=== PATIENT | male | born 1965 | race Caucasian/White ===

== ENCOUNTER 2025-08-27 06:36 | Outpatient (OUT) | payer OTHER, SELFPAY ==
--- OUTSIDE RECORDS SUMMARY | 2025-08-20 03:35 | XMS_ITS ---
Author Organization The [facility] in [place] Address [address] [place] [address] Care Team Providers Care Carport Erector Name Role Phone Angel Beltre Primary Care Provider REASON FOR VISIT Recheck Labs Encounters Encounter Location Date Provider Diagnosis [address] [address] 08/20/2025 Angel Beltre Hypertension I10 and Elevated glucose level R73.09 Assessments Encounter Date Diagnosis (ICD Code) Assessment Notes Treatment Notes Treatment Clinical Notes Section Notes 08/20/2025 Hypertension (ICD-10 - I10) 08/20/2025Elevated glucose level (ICD-10 - R73.09) Plan Of Treatment Pending Test Test Name Order Date CMP - Comprehensive Metabolic Panel 10/2024 GLYCOHEMOGLOBIN A1C 08/20/2025 Progress Notes * FRANKIE, AnirudhDOB:1965 (59 yo M)Acc No.[id number]:08/20/2025 Patient:?Anirudh DAVID :1965???Age:59 Y???Sex:MalePhone:[phone] Address:[address] [place] [address] Subjective: * Chief Complaints: * R echeck Labs * Medical History: * Surgical History: * Hospitalization/Major Diagno stic Procedure: * Medications: Objective: * Vitals: * Physical Examination: ??? Assessment: * Assessment: 1.?Hypertension - I10???2.?Elevated glucose level - R73.09?? Plan: * Treatment: ?LAB: CMP - Comprehensive Metabolic Panel2.?Elevated glucose level?LAB: GLYCOHEMOGLOBIN A1C * Procedure Codes: * true * Date:?Generated for Printing/Faxing/eTransmitting on:?08/27/2025 06:40 AM EST
--- OUTSIDE RECORDS SUMMARY | 2025-08-27 06:40 | XMS_ITS | Clinical Summary ---
Author Organization [facility] Address [id number] [address] [place] [address] Care Team Providers Care Teaching Assistant Name Role Phone Atif Beltre MD Primary Care Provider [phone] Allergies No known active allergies Medications MedicationSigDispense QuantityRefillsLast FilledStart DateEnd DateStatus cholecalciferol (VITAMIN D3) 50,000 units capsule Take by mouth Indications: only if sick x 3 daysActive b complex vitamins tablet Take 1 tablet by mouth in the morning.Active UNABLE TO FIND Med Name: bausch and lomb advanced reliefActive magnesium oxide 400 mg capsule Take by mouth.Active UNABLE TO FIND Med Name: stool softnerActive sildenafiL (VIAGRA) 50 mg tablet Take 1 tablet (50 mg total) by mouth as needed for erectile dysfunction. 6 tablet ctive triamcinolone (KENALOG) 0.025 % cream Indications:Atopic dermatitis, unspecified typeAPPLY 1 APPLICATION TOPICALLY IN THE MORNING AND 1 APPLICATION BEFORE BEDTIME. 80 g ctive albuterol (PROVENTIL HFA;VENTOLIN HFA) 90 mcg/actuation inhaler TAKE 1-2 PUFFS EVERY 4-6 HOURS NEEDED FOR COUGH, SHORTNESS OF BREATH, OR WHEEZING. USE VVOTUVX6706/18/2023ctive lisinopriL (PRINIVIL,ZESTRIL) 20 mg tablet Indications:Primary hypertensionTake 1 tablet (20 mg total) by mouth in the morning. 30 tablet 5Active Active Problems ProblemNoted DateDiagnosed DateNose septum lucvovsrx38/11/2018Erectile gkusxfpuvef47/06/2016 Overview (08/24/2016): Improved with Viagra 50 milligrams in the past Assessment & Plan (08/24/2016 4:11 PM EST): Plan for trial of Cialis 20 milligrams. If this works we can switch him to generic sildenafil whichwill be cheaper for him. I additionally ordered a testosterone level today for him Bilateral hearing loss08/04/2016Bilateral impacted /16/2016Hypertension Encounters DateTypeDepartmentCare HrkcWiobzkhlnlb88/09/2025Travelfrom Last 3 Months Immunizations ImmunizationAdministration DatesNext DueHepatitis A004/08/2011,09/29/2010 Family History Medical HistoryRelationNameCommentsArthritisFatherHyperlipidemiaFather HypertensionFatherHeart attackMotherOtherMotherpancreatic surgery (tumor) RelationNameStatusCommentsFatherAliveMotherDeceased Social History Tobacco UseTypesPacks/DayYears UsedDateSmoking Tobacco: FormerSmokeless Tobacco: Never Tobacco Cessation:Counseling Given: Not Answered Alcohol UseStandard Drinks/WeekCommentsNot Currently0 (1 standard drink = 0.6 oz pure alcohol)PHQ-2AnswerDate RecordedTotal Dphpf410/20/2023ChildcareAnswerDate QttpjmdtOzkstiqqmYttlmbw31/12/2019EmploymentAnswerDate RecordedEmploymentUnknown 02/28/2019Hunger ScreeningAnswerDate RecordedWithin the past 12 months we worried whether our food would run out before we got money to buy more.Never True07/08/2023Within the past 12 months the food we bought just didn't last and we didn't have money to get more.Never True3Purpose - LifeAnswerDate RecordedPurpose and direction in shgqXryiiib75/11/2021ex and Gender Information ValueDate RecordedSex Assigned at BirthNot on fileLegal LckZsuk1604/24/2015 11:39 AM EDTGender IdentityNot on fileSexual OrientationNot on file Last Filed Vital Signs Vital SignReadingTime TakenCommentsBlood Todqrcub217/8510 9:31 AM EDT Pnupk827407/08/2023 9:31 AM ZGOUjqqdebjltm70.1 ??C (98.8 ??F)2021 6:28 PM ESTRespiratory Ovse685409/23/2021 6:28 PM ESTOxygen Ihilosltwa08%2021 8:28 PM ESTInhaled Oxygen Concentration--Avwtmm118.6 kg (221 lb 12.8 oz)07/08/2023 9:31 AM QEZAdmwga085.4 cm (5' 6.3 )07/08/2023 9:31 AM EDTBody Mass Index35.48 07/08/2023 9:31 AM EDT Plan of Treatment Health MaintenanceDue DateLast DoneCommentsTobacco Djsnygemb95/05/1976DTaP,Tdap and Td Vaccines (1 - Tdap)09/23/19827680Zxglnfbkkos69/05/2009Zoster (Shingles) Vaccine (1 of 2)2013dult BMI Seuwgifzf78epression Jjlahvsxt70Influenza Zaglvyy4305/20/2025RSV ( or age 60+ yrs) (1 - 1-dose 75+ series)2038 Medical Devices Not on file Procedures Procedure NamePriorityDate/TimeAssociated DiagnosisCommentsOCCULT BLOOD X 1, FDEDXRraehdv84/09/2025 6:00 AM EDT Encounter for general adult medical examination without abnormal findings from Last 3 Months Results * Occult blood x 1, stool (05/28/2025 6:00 AM EDT)ComponentValueRef RangeTest MethodAnalysis TimePerformed AtPathologist SignatureFECAL OCCULT BLOODNegative Qwbekajl57/09/2025 11:[address] [facility] LABORATORYSpecimen (Source)Anatomical Location / LateralityCollection Method / VolumeCollection TimeReceived TimeStoolFeces / Ptvysbk7905/28/2025 6:00 AM EDT05/28/2025 4:37 PM EDT Narrative Authorizing ProviderResult TypeResult StatusDonavi Beltre MDBODY FLUIDS AND STOOLS ORDERABLESFinal ResultPerforming OrganizationAddressCity/State/ZIP Code Phone Number [facility] [address] [place] [address], [place] [phone] from Last 3 Months Insurance Care Teams Team MemberRelationshipSpecialtyStart DateEnd Atif Beltre MD [address] [place] [address] PCP - GeneralFamily Medicine05/15/25
--- OUTSIDE RECORDS SUMMARY | 2025-08-27 06:40 | XMS_ITS | Clinical Summary ---
Author Organization [facility] Address [address] [place] [address] Care Team Providers Care Crop Farm Workers Name Role Phone Colin Nagel MD Primary Care Provider [phone] Allergies No known active allergies Medications MedicationSigDispense QuantityRefillsLast FilledStart DateEnd DateStatus lisinopril 20 MG tablet 1 tablet Once a day , Kecqrr154Active Family History RelationNameStatusCommentsFatherAliveMotherDeceased Social History Tobacco UseTypesPacks/DayYears UsedDateSmoking Tobacco: Never Tobacco Cessation:Counseling Given: Not Answered Alcohol UseStandard Drinks/WeekCommentsNever0 (1 standard drink = 0.6 oz pure alcohol)Sex and Gender InformationValueDate RecordedSex Assigned at BirthNot on fileLegal ZlaRala1712/01/2022 7:14 PM EDTGender IdentityNot on fileSexual OrientationNot on file Last Filed Vital Signs Vital SignReadingTime TakenCommentsBlood Wyvvtgyv257/8705 12:00 PM EDT Pulse--Temperature--Respiratory Rate--Oxygen Saturation--Inhaled Oxygen Concentration--Gjcoft666 kg (222 lb)09/10/2024 9:32 AM YXQWerxna770.7 cm (5' 8 ) 09/10/2024 9:32 AM ESTBody Mass Index33.7509/10/2024 9:32 AM EST Plan of Treatment Not on file Insurance Care Teams Team MemberRelationshipSpecialtyStart DateEnd Date Colin Nagel MD [address] [place] [address], [address] [place] [address] PCP - GeneralFamily Medicine03/19/25
--- OUTSIDE RECORDS SUMMARY | 2025-08-27 06:40 | XMS_ITS | Clinical Summary ---
Author Organization [facility] Address [address], [address] [place] [address] Care Team Providers Care Manager [employer] Retail Name Role Phone Shankar Palacios MD Primary Care Provider + Allergies No known active allergies Medications MedicationSigDispense QuantityRefillsLast FilledStart DateEnd DateStatus b complex vitamins capsule Take 1 capsule by mouth dailyActive Multiple Vitamins-Minerals (THERAPEUTIC MULTIVITAMIN-MINERALS) tablet Take 1 tablet by mouth dailyActive beta carotene 51436 UNITS capsule Take 25,000 Units by mouth dailyActive NONFORMULARY 380 mg 2 times daily enchinaceaActive lisinopril (PRINIVIL;ZESTRIL) 20 MG tablet Take 20 mg by mouth dailyActive Magnesium 400 MG CAPS Take by mouth dailyActive docusate sodium (COLACE) 100 MG capsule Take 100 mg by mouth 2 times dailyActive naproxen (NAPROSYN) 500 MG tablet Take 1 tablet by mouth 2 times daily (with meals) 60 tablet 08/31/2016Active Active Problems ProblemNoted DateDiagnosed DateHTN (hypertension)02/19/2015 Resolved Problems ProblemNoted DateDiagnosed DateResolved DateColon cancer fqrbmojbn63/19/2016 06/15/2018 Family History Medical HistoryRelationNameCommentsHigh Blood PressureFatherHigh Cholesterol FatherOtherFathergoutCancerMotherRelationNameStatusCommentsBrother 1AliveBrother 2AliveFatherAliveMotherAlive Social History Tobacco UseTypesPacks/DayYears UsedDateSmoking Tobacco: NeverSmokeless Tobacco: NeverAlcohol UseStandard Drinks/WeekCommentsNo0 (1 standard drink = 0.6 oz pure alcohol)Sex and Gender InformationValueDate RecordedSex Assigned at BirthNot on fileLegal KejErly5210/29/2012 11:21 AM ESTGender IdentityNot on fileSexual OrientationNot on file Last Filed Vital Signs Vital SignReadingTime TakenCommentsBlood Ipnnltme456/80111/01/2015 5:38 PM EST Jwukx33671/13/2016 5:38 PM ESTTemperature--Respiratory Hslh438411/01/2015 5:38 PM ESTOxygen Xqqpoisxhy05%04/14/2015 4:09 PM EDTInhaled Oxygen Concentration-- Xxgwuo54.6 kg (202 lb)08/31/2016 5:38 PM KWUJprqnf231.9 cm (5' 6.5 )08/31/2016 5:38 PM ESTBody Mass Index32.12111/01/2015 5:38 PM EST Plan of Treatment Not on file Insurance Care Teams Team MemberRelationshipSpecialtyStart DateEnd Shankar Palacios MD [address] [place] [address] [facility]01/24/19
--- OUTSIDE RECORDS SUMMARY | 2025-08-27 06:40 | XMS_ITS | Patient Health Record ---
Author Organization The [facility] in [place] Address [address] [place] [address] Care Team Providers Care Tanker Serviceman Name Role Phone Angel Beltre Primary Care Provider Allergies No Known Allergies Results Component Value Reference Range Notes CBC AND AUTO DIFF * Reviewed date:05/16/2025 12:43:50 PM Interpretation: Performing Lab: Notes/Report: WBC 7.6 4-11 x10E9/L RBC COUNT5.034.1-5.7 X10E12/VRNQMHGLFSN00.613-17 g/aIIKFNJEJANX40.639-50 %MCV87 80-100 fLMCH29.027-34 saHQIW70.532-36 g/dLRDW13.711.5-15 %PLATELET PAZCR108660- 450 X10E9/LMPV9.27-12 fLNEUTROPHILS RELATIVE PERCENT BY AUTOMATED COUNT54.6 LYMPHOCYTES RELATIVE PERCENT BY AUTOMATED COUNT35.2MONOCYTES RELATIVE PERCENT BY AUTOMATED COUNT8.7EOSINOPHILS RELATIVE PERCENT BY AUTOMATED COUNT0.8BASOPHILS RELATIVE PERCENT BY AUTOMATED COUNT0.7NEUTROPHILS ABSOLUTE COUNT BY AUTOMATED COUNT4.21.5-6.6 10*3/uLLYMPHOCYTES ABSOLUTE COUNT (10*3/UL) BY AUTOMATED COUNT 2.71.0-3.5 10*3/uLMONOCYTES ABSOLUTE COUNT (10*3/UL) BY AUTOMATED COUNT0.70.0- 0.9 10*3/uLEOSINOPHILS ABSOLUTE COUNT (10*3/UL) BY AUTOMATED COUNT0.10.0-0.4 10*3/uLBASOPHILS ABSOLUTE COUNT (10*3/UL) BY AUTOMATED COUNT0.10.0-0.2 10*3/uL CELLAVISION DIFFERENTIAL TYPEAUTOMATED DIFFERENTIAL PERFORMED AT [address] [place] [address] COMPREHENSIVE METABOLIC PANEL Reviewed date:05/16/2025 12:43:50 PM Interpretation: Performing Lab: Notes/Report:UETJAF355852-015 mmol/LPOTASSIUM4.13.5-5.0 mmol/LJVPBMPCN39316-645 mmol/LCARBON VEYOWTS9996-82 mmol/LANION WSE65-66 mmol/LBLOOD UREA UAXDRUYI999-56 mg/dLCREATININE0.890.60-1.30 mg/dLMETHOD TRACEABLE TO IDMS FAAHEFLZVKXVSYV2524- 99 mg/gHFOXHPVD37.58.5-10.5 mg/dLTOTAL PROTEIN7.06.0-8.0 g/dLALBUMIN4.63.2-5.3 g/dLALKALINE EIKUEYBWNRD5722-929 U/LAST38<=41 U/LALT92<=40 U/LBILIRUBIN,TOTAL0.9 0.3-1.2 mg/dLEGFR (CKD-EPI) NON-RACE DEPENDENT>90>=60 ml/min/1.73sq.m CKD-EPI 2020 equation that does not use a race coefficient. PERFORMED AT [address] [place] [address] Reported eGFR is based on the EGFR not calculated due to patient's gender not being defined. FREE T3 Reviewed date:05/16/2025 12:43:50 PM Interpretation: Performing Lab: Notes/Report:FREE T33.832.50-3.90 pg/mL PERFORMED AT [address] [place] [address] URIC ACID Reviewed date:05/16/2025 12:43:50 PM Interpretation: Performing Lab: Notes/Report:URIC ACID6.42.6-7.2 mg/dL PERFORMED AT [address] [place] [address] INSULIN Reviewed date:05/16/2025 12:43:50 PM Interpretation: Performing Lab: Notes/Report:ASDTTNL06.121.00-23.00 uIU/mL Ref. range is for FASTING NON-DIABETIC POPULATION. PERFORMED AT [address] [address] HGB A1C (GLYCO-HGB) Reviewed date:05/16/2025 12:43:50 PM Interpretation: Performing Lab: Notes/Report:HEMOGLOBIN A1C6.54.4-5.6 % Diabetes : > 6.4 % affected. Prediabetes : 5.7 % to 6.4 % Use with caution in patients with abnormal hemoglobin variants as Result HgbA1c Normal : less than 5.7 % ADA Guidelines the half-life of red blood cells and in vivo glycation rates are EST. AVERAGE MZLCSZR772MENIDQSMV AT [address] [address]SYMVPGG PROFILE Reviewed date:05/16/2025 12:43:50 PM Interpretation: Performing Lab: Notes/Report:FREE T40.710.61-1.60 ng/dLTSH1.420.49-4.67 uIU/mL PERFORMED AT [address] [address] LIPID PANEL Reviewed date:05/16/2025 12:43:50 PM Interpretation: Performing Lab: Notes/Report:OVMYAJMOWAE608353-417 mg/xMBMLGNZIBKJBG95970-029 mg/dLHDL ODILTOFNOCU44>39 mg/dL HDL > or = 40mg/dL- Desirable HDL >60 mg/dL - Negative Risk HDL <40 mg/dL - High Risk LDL (CALC)120<130 mg/dL LDL >160 mg/dL - High Risk LDL <100 mg/dL - Desirable CHOLESTEROL:HDL4.61.0-5.0 NAVERY LOW YNGWHRUFVAC629-53 mg/dLPERFORMED AT [address] [address]HFI. SCREENING Reviewed date:05/16/2025 12:43:51 PM Interpretation: Performing Lab: Notes/Report:PROSTATIC SPEC ANT1.810.00-4.00 ng/mL cannot be used interchangeably. PERFORMED AT [address] [place] [address] Khris DXI chemiluminescent immunoassay. Values obtained by different assay methods The method used for this test is Toney FECAL OCCULT BLOOD Reviewed date:05/29/2025 12:35:32 PM Interpretation: Performing Lab: Notes/Report:FECAL OCCULT BLOODNegativeNegativePERFORMED AT [facility] [address],[place] [address] Reason For Referral Reason Basal cell? Diagnosis 1 Nevus (D22.9) Referral Organization [facility] Referring Provider First Name Angel Referring Provider Last Name Patt Referring Provider Speciality Family Med ashley Referred Provider Jaswinder Morelos Referred Provider Specialty General Surg juvencio Referral Priority Routine Medications Medication SIG (Take, Route, Frequency, Duration) Notes Start Date End Date Status Lisinopril 20 MG 1 tablet Orally Once a day; Dur ation: 90 days Active Social History Tobacco Use: Social History Observation Description Date Details (start date - stop date) Never Smoker NA - NA Tobacco Control (Standard) Question Answer Notes Tobacco use: Nonsmoker AUDIT-C (Standard) Question Answer Notes Did you have a drink containing alcohol in the p ast year? No Dnsjpv3RpjydnswpsgwfcBtmtijqf Problems Problem Type SNOMED Code ICD Code Onset Dates Problem Status W/U Status Risk Notes Problem Hypertension (21638263) Hypertension (I10 ) ActiveconfirmedProblemWell adult (817971906)Well adult (Z00.00)Activeconfirmed ProblemNevus (1497754644)Nevus (D22.9)Activeconfirmed Vital Signs Blood pressure diastolic 90 mm Hg 04/15/2025 Lkawom29 in04/15/2025lood pressure pqmuyjdy536 mm Hg04/15/20251448Odaekq773.8 lbs 04/15/2025BMI35.85 kg/m204/15/2025 Encounters Encounter Location Date Provider Diagnosis [facility] [address] [place] [address] 04/15/2025 Angel Beltre Well adult Z00.00 ; Hypertension I10 and Nevus D22.9 [facility] [address] [place] [address] 05/16/2025 Angel Beltre Elevated glucose lev el R73.09 [facility] [address] [facility] [place] [address] 05/29/2025 Angel Beltre [facility] [facility] [place] [address] 08/20/2025Doug HoyHypertension I10 and Elevated glucose level R73.09 Assessments Encounter Date Diagnosis (ICD Code) Assessment Notes Treatment Notes Treatment Clinical Notes Section Notes 04/15/2025 Hypertension (ICD-10 - I10) 04/15/2025Well adult (ICD-10 - Z00.00)05/16/2025Elevated glucose level (ICD-10 - R73.09)08/20/2025Hypertension (ICD-10 - I10)08/20/2025Elevated glucose level (ICD-10 - R73.09)04/15/2025Nevus (ICD-10 - D22.9) Plan Of Treatment Pending Test Test Name Order Date HEMOGLOBIN A1C (GLYCO) 04/15/2025 INSULIN, TOTAL 04/15/2025 LIPID PANEL (CHOL/TRIG/HDL/LDL) 04/15/20 25 URIC ACID 04/15/2025 CMP - Comprehensive Metabolic Panel 10/2024 STOOL OCCULT BLOOD 04/15/2025 GLYCOHEMOGLOBIN A1C 05/16/2025 GLYCOHEMOGLOBIN A1C 08/20/2025 THYROID PANEL (T4/TSH/FREE T3) PSA, SCREENING 04/15/2025 CMP (COMP MET MEZA) w/eGFR CKD-EPI 2024 CBC WITH DIFF 04/15/2025 Insurance Providers Payer Name Payer Address Payer Phone Subscriber Number Group Number Insured Name Patient Relationship to Insured Coverage Start Date Coverage End Date [facility] JO[facility] [address] [place] [phone] [id number] Roly David - patient is the insured Medical (General) History Medical History History ICD Code hypertension Surgical History Surgery Date(Month/Year) gallbladder removed 1985 lasik eye surgery 2009
[2025-08-27 07:18] LABS: Alanine Aminotransferase 114 U/L (16-63); Albumin Globulin Ratio 1.1; Albumin Level 3.9 g/dL (3.4-5.0); Alkaline Phosphatase 80 U/L (46-116); Anion Gap 15.0; Aspartate Amino Transferase 49 U/L (15-37); Blood Urea Nitrogen 12.0 mg/dL (7.0-18.0); Calcium 9.0 mg/dL (8.5-10.1); Carbon Dioxide 26.0 mmol/L (21.0-32.0); Chloride 104 mmol/L (98-107); Estimated GFR (African America >60 (>=60 mL/min/1.73m^2); Estimated GFR (Non-African Ame >60 (>=60 mL/min/1.73m^2); Globulin 3.6 g/dL; Glucose 100 mg/dL (74-106); Potassium 4.0 mmol/L (3.5-5.1); Sodium 141 mmol/L (136-145); Total Protein 7.5 g/dL (6.4-8.2)
== END 2025-08-27 06:37 | disposition home or self-care (01) ==
LOC: LAB 06:37
PROVIDERS: PCP Family Medicine; Visit Provider Family Medicine
DX: R73.09 Other abnormal glucose (principal); I10 Essential (primary) hypertension
CPT/HCPCS: 36415; 80053; 83036

== ENCOUNTER 2025-09-10 15:30 | Outpatient (OUT) | payer OTHER, SELFPAY ==
--- OUTSIDE RECORDS SUMMARY | 2025-08-27 11:18 | XMS_ITS ---
Author Organization The [facility] in [place] Address [address] [place] [address] Care Team Providers Care Cuprous Chloride Operator Name Role Phone Angel Beltre Primary Care Provider REASON FOR VISIT Lab Results Encounters Encounter Location Date Provider Diagnosis [facility] [address] [place] [address] 08/27/2025 Angel Beltre Elevated liver function tests R79.89 Assessments Encounter Date Diagnosis (ICD Code) Assessment Notes Treatment Notes Treatment Clinical Notes Section Notes 08/27/2025 Elevated liver function tests (I CD-10 - R79.89) Plan Of Treatment Pending Test Test Name Order Date PROF 14(COMP METB) 08/27/2025 Progress Notes * Anirudh DAVIDDOB:1965 (59 yo M)Acc No.[id number]:08/27/2025 Patient:?Anirudh DAVID :1965???Age:59 Y???Sex:MalePhone:[phone] Address:[address] [place] [address] Subjective: * Chief Complaints: * L ab Results * Medical History: * Surgical History: * Hospitalization/Major Diagno stic Procedure: * Medications: Objective: * Vitals: * Physical Examination: ??? Assessment: * Assessment: 1.?Elevated liver function tests - R79.89 (Primary)??? Plan: * Treatment: ?LAB: PROF 14(COMP METB)* 2-3 week repeat * Procedure Codes: * true * Date:?Generated for Printing/Faxing/eTransmitting on:?09/10/2025 03:33 PM EST
--- OUTSIDE RECORDS SUMMARY | 2025-09-10 15:33 | XMS_ITS | Clinical Summary ---
Author Organization [facility] Address [address], [address] [place] [address] Care Team Providers Care Corrosion Engineer Name Role Phone Shankar Palacios MD Primary Care Provider + Allergies No known active allergies Medications MedicationSigDispense QuantityRefillsLast FilledStart DateEnd DateStatus b complex vitamins capsule Take 1 capsule by mouth dailyActive Multiple Vitamins-Minerals (THERAPEUTIC MULTIVITAMIN-MINERALS) tablet Take 1 tablet by mouth dailyActive beta carotene 06997 UNITS capsule Take 25,000 Units by mouth [...] Resolved Problems ProblemNoted DateDiagnosed DateResolved DateColon cancer /19/2016 06/15/2018 Family History Medical HistoryRelationNameCommentsHigh Blood PressureFatherHigh Cholesterol FatherOtherFathergoutCancerMotherRelationNameStatusCommentsBrother 1AliveBrother 2AliveFatherAliveMotherAlive Social History Tobacco UseTypesPacks/DayYears UsedDateSmoking Tobacco: NeverSmokeless Tobacco: NeverAlcohol UseStandard Drinks/WeekCommentsNo0 (1 standard drink = 0.6 oz pure alcohol)Sex and Gender InformationValueDate RecordedSex Assigned at BirthNot on fileLegal XbwGjov9810/29/2012 11:21 AM ESTGender IdentityNot on fileSexual OrientationNot on file Last Filed Vital Signs Vital SignReadingTime TakenCommentsBlood Iewxjqdf634/80111/01/2015 5:38 PM EST Gqunm43128/13/2016 5:38 PM ESTTemperature--Respiratory Xtel665311/01/2015 5:38 PM ESTOxygen Hwdqlzvmft28%04/14/2015 4:09 PM EDTInhaled Oxygen Concentration-- Zxrgca00.6 kg (202 lb)08/31/2016 5:38 PM PCWRquvsc052.9 cm (5' 6.5 )08/31/2016 5:38 PM ESTBody Mass Index32.12111/01/2015 5:38 PM EST Plan of Treatment Not on file Insurance Care Teams Team MemberRelationshipSpecialtyStart DateEnd Shankar Palacios MD [address] [place] [address] [facility]01/24/19
--- OUTSIDE RECORDS SUMMARY | 2025-09-10 15:33 | XMS_ITS | Patient Health Record ---
Author Organization [facility] [place] Address [address] [place] [address] Care Team Providers Care Belt Builder Helper Name Role Phone Angel Beltre Primary Care Provider Allergies No Known Allergies Results Component Value Reference Range Notes GLYCOHEMOGLOBIN A1C Reviewed date:08/27/2025 04:20:01 PM Interpretation: Performing Lab: Notes/Report: [facility] , Glycohemoglobin A1C 5.9 4.5-6.2 % ADA THERAPEUTIC TARGET < 7.0 > 7.0 ACTION SUGGESTED ADA RECOMMENDED LIMIT 4.0 - 6.0 Estimated Average Glucose 123 Performing Lab:see noteML - [facility] LBCBC AND AUTO DIFF * Reviewed date:05/16/2025 12:43:50 PM Interpretation: Performing Lab: Notes/Report:WBC7.64-11 x10E9/LRBC COUNT5.034.1-5.7 X10E12/BNSSRLJQAYE56.613-17 g/sPROEPQGDZUI48.639-50 %KOL5170-107 fLMCH29.027-34 bwAENH98.532-36 g/dLRDW13.7 11.5-15 %PLATELET AQNZH745560-040 X10E9/LMPV9.27-12 fLNEUTROPHILS RELATIVE PERCENT BY AUTOMATED COUNT54.6LYMPHOCYTES RELATIVE PERCENT BY AUTOMATED COUNT 35.2MONOCYTES RELATIVE PERCENT BY AUTOMATED COUNT8.7EOSINOPHILS RELATIVE PERCENT BY AUTOMATED COUNT0.8BASOPHILS RELATIVE PERCENT BY AUTOMATED COUNT0.7NEUTROPHILS ABSOLUTE COUNT BY AUTOMATED COUNT4.21.5-6.6 10*3/uLLYMPHOCYTES ABSOLUTE COUNT (10*3/UL) BY AUTOMATED COUNT2.71.0-3.5 10*3/uLMONOCYTES ABSOLUTE COUNT (10*3/UL) BY AUTOMATED COUNT0.70.0-0.9 10*3/uLEOSINOPHILS ABSOLUTE COUNT (10*3/UL) BY AUTOMATED COUNT0.10.0-0.4 10*3/uLBASOPHILS ABSOLUTE COUNT (10*3/UL) BY AUTOMATED COUNT0.10.0-0.2 10*3/uLCELLAVISION DIFFERENTIAL TYPEAUTOMATED DIFFERENTIAL PERFORMED AT [address], [place] [address] COMPREHENSIVE METABOLIC PANEL Reviewed date:05/16/2025 12:43:50 PM Interpretation: Performing Lab: Notes/Report:OFQUTD746588-139 mmol/LPOTASSIUM4.13.5-5.0 mmol/GXXHZMEXN85173-862 mmol/LCARBON BSCSRQJ0839-38 mmol/LANION DMO44-30 mmol/LBLOOD UREA WIFGODTC370-89 mg/dLCREATININE0.890.60-1.30 mg/dLMETHOD TRACEABLE TO IDMS YNTDCCVYXMZTKBW1874- 99 mg/xEFAOJKSX54.58.5-10.5 mg/dLTOTAL PROTEIN7.06.0-8.0 g/dLALBUMIN4.63.2-5.3 g/dLALKALINE YJBFXOJXPEY2199-598 U/LAST38<=41 U/LALT92<=40 U/LBILIRUBIN,TOTAL0.9 0.3-1.2 mg/dLEGFR (CKD-EPI) NON-RACE DEPENDENT>90>=60 ml/min/1.73sq.m CKD-EPI 2020 equation that does not use a race coefficient. PERFORMED AT [address] [id number] Reported eGFR is based on the EGFR not calculated due to patient's gender not being defined. FREE T3 Reviewed date:05/16/2025 12:43:50 PM Interpretation: Performing Lab: Notes/Report:FREE T33.832.50-3.90 pg/mL PERFORMED AT [address] [address] URIC ACID Reviewed date:05/16/2025 12:43:50 PM Interpretation: Performing Lab: Notes/Report:URIC ACID6.42.6-7.2 mg/dL PERFORMED AT [address] [address] INSULIN Reviewed date:05/16/2025 12:43:50 PM Interpretation: Performing Lab: Notes/Report:HDTTRNL46.121.00-23.00 uIU/mL Ref. range is for FASTING NON-DIABETIC POPULATION. PERFORMED AT [address] [address] HGB A1C (GLYCO-HGB) Reviewed date:05/16/2025 12:43:50 PM Interpretation: Performing Lab: Notes/Report:HEMOGLOBIN A1C6.54.4-5.6 % Diabetes : > 6.4 % affected. Prediabetes : 5.7 % to 6.4 % Use with caution in patients with abnormal hemoglobin variants as Result HgbA1c ADA Guidelines the half-life of red blood cells and in vivo glycation rates are Normal : less than 5.7 % EST. AVERAGE KJOJZFF139YKJDNXAZA AT [address] [address]SPYGOGN PROFILE Reviewed date:05/16/2025 12:43:50 PM Interpretation: Performing Lab: Notes/Report:FREE T40.710.61-1.60 ng/dLTSH1.420.49-4.67 uIU/mL PERFORMED AT [address] [address] LIPID PANEL Reviewed date:05/16/2025 12:43:50 PM Interpretation: Performing Lab: Notes/Report:TNOHUGMFGHF721922-760 mg/xZNIKGRFNPVQKD20252-624 mg/dLHDL YWGXJUYCKXO92>39 mg/dL HDL > or = 40mg/dL- Desirable HDL <40 mg/dL - High Risk HDL >60 mg/dL - Negative Risk LDL (CALC)120<130 mg/dL LDL >160 mg/dL - High Risk LDL <100 mg/dL - Desirable CHOLESTEROL:HDL4.61.0-5.0 NAVERY LOW QMUGDDAJMOA911-58 mg/dLPERFORMED AT [address] [place] [address]. SCREENING Reviewed date:05/16/2025 12:43:51 PM Interpretation: Performing Lab: Notes/Report:PROSTATIC SPEC ANT1.810.00-4.00 ng/mL cannot be used interchangeably. PERFORMED AT [address] [address] Khris DXI chemiluminescent immunoassay. The method used for this test is Toney Values obtained by different assay methods FECAL OCCULT BLOOD Reviewed date:05/29/2025 12:35:32 PM Interpretation: Performing Lab: Notes/Report:FECAL OCCULT BLOODNegativeNegativePERFORMED AT [address] [address]UYPH 14(COMP METB) Reviewed date:08/27/2025 04:20:01 PM Interpretation: Performing Lab: Notes/Report: [facility] ,Mbxfwc051807-676 mmol/LPotassium4.03.5-5.1 mmol/OYotiycvj08548-190 mmol/LCarbon Icjwbam71.021.0-32.0 mmol/LAnion Gap15.0Zvfeute57905-746 mg/dLBlood Urea Qpyixrdd68.07.0-18.0 mg/dLCreatinine0.950.70-1.30 mg/dLEstimated GFR ( Jazzy>60>=60 mL/min/1.73m 2Estimated GFR (Non- Brittany>60>=60 mL/min/1.73m 2BUN Creatinine Ratio12.9Dfjizzg7.08.5-10.1 mg/dLBilirubin Total0.50.2-1.0 mg/dL Aspartate Amino Uhjpzznavet6552-36 U/LAlanine Sizfnoyasthbopuy90284-70 U/L Alkaline Cgavxypisnq8624-756 U/LTotal Protein7.56.4-8.2 g/dLAlbumin Level3.93.4- 5.0 g/dLGlobulin3.6Albumin Globulin Ratio1.1Performing Lab:see noteML - [facility] LB Reason For Referral Reason Basal cell? Diagnosis 1 Nevus (D22.9) Referral Organization [facility] Referring Provider First Name Angel Referring Provider Last Name Peteliam Referring Provider Speciality Family Med ashley Referred [...] alcohol in the p ast year? No Mrmruk4IujbcyhzwajnbxZonngrus Problems Problem Type SNOMED Code ICD Code Onset Dates Problem Status W/U Status Risk Notes Problem Hypertension (02739382) Hypertension (I10 ) ActiveconfirmedProblemWell adult (097477205)Well adult (Z00.00)Activeconfirmed ProblemNevus (0701501372)Nevus (D22.9)Activeconfirmed Vital Signs Blood pressure diastolic 90 mm Hg 04/15/2025 Clnnox24 in04/15/2025lood pressure zxlyrkcq447 mm Hg04/15/20251639Enujaz655.8 lbs 04/15/2025BMI35.85 kg/m204/15/2025 Encounters Encounter Location Date Provider Diagnosis [facility] [address] [place] [address] 04/15/2025 Angel Hoy Well adult Z00.00 ; Hypertension I10 and Nevus D22.9 [facility] [address] [place] [address] 05/16/2025 Angel Hoy Elevated glucose lev el R73.09 [facility] [address] [place] [address] 05/29/2025 Angel Hoy [facility] [place] [address] 08/20/2025Doug HoyHypertension I10 and Elevated glucose level R73.09[facility] [place] [address]/09/2025 Angel HoyElevated liver function tests R79.89 Assessments Encounter Date Diagnosis (ICD Code) Assessment Notes Treatment Notes Treatment Clinical Notes Section Notes 04/15/2025 Hypertension (ICD-10 - I10) 04/15/2025Well adult (ICD-10 - Z00.00)05/16/2025Elevated glucose level (ICD-10 - R73.09)08/20/2025Hypertension (ICD-10 - I10)08/27/2025Elevated liver function tests (ICD-10 - R79.89)08/20/2025Elevated glucose level (ICD-10 - R73.09) 04/15/2025Nevus (ICD-10 - D22.9) Plan Of Treatment Pending Test Test Name Order Date HEMOGLOBIN A1C (GLYCO) 04/15/2025 INSULIN, TOTAL 04/15/2025 LIPID PANEL (CHOL/TRIG/HDL/LDL) 04/15/20 25 URIC ACID 04/15/2025 CMP - Comprehensive Metabolic Panel 10/2024 STOOL OCCULT BLOOD 04/15/2025 GLYCOHEMOGLOBIN A1C 05/16/2025 PROF 14(COMP METB) 08/27/2025 THYROID PANEL (T4/TSH/FREE T3) PSA, SCREENING 04/15/2025 CMP (COMP MET MEZA) w/eGFR CKD-EPI 2024 CBC WITH DIFF 04/15/2025 Insurance Providers Payer Name Payer Address Payer Phone Subscriber Number Group Number Insured Name Patient Relationship to Insured Coverage Start Date Coverage End Date [facility] [address] [place] [phone] [id number] Roly David - patient is the insured Medical (General) History Medical History History ICD Code hypertension Surgical History Surgery Date(Month/Year) lasik eye surgery 2009 gallbladder removed 1985
--- OUTSIDE RECORDS SUMMARY | 2025-09-10 15:33 | XMS_ITS | Clinical Summary ---
Author Organization [employer] tem Address [id number] [address] [place] [address] Care Team Providers Care Rn Sexual Assault Name Role Phone Atif Beltre MD Primary Care Provider [phone] Allergies No known active allergies Medications MedicationSigDispense [...] COUGH, SHORTNESS OF BREATH, OR WHEEZING. USE XDOXVPF6406/18/2023ctive lisinopriL (PRINIVIL,ZESTRIL) 20 mg tablet Indications:Primary hypertensionTake 1 tablet (20 mg total) by mouth in the morning. 30 tablet 5Active Active Problems ProblemNoted DateDiagnosed DateNose septum hqfzyuggl19/11/2018Erectile csryiyzeqjp05/06/2016 Overview (08/24/2016): Improved with Viagra 50 milligrams in the past Assessment & Plan (08/24/2016 4:11 PM EST): Plan for trial of Cialis 20 milligrams. If this works we can switch him to generic sildenafil whichwill be cheaper for him. I additionally ordered a testosterone level today for him Bilateral hearing loss08/04/2016Bilateral impacted dogazas48/16/2016Hypertension Immunizations ImmunizationAdministration DatesNext DueHepatitis A004/08/2011,09/29/2010 Family History Medical HistoryRelationNameCommentsArthritisFatherHyperlipidemiaFather HypertensionFatherHeart attackMotherOtherMotherpancreatic surgery (tumor) RelationNameStatusCommentsFatherAliveMotherDeceased Social History Tobacco UseTypesPacks/DayYears UsedDateSmoking Tobacco: FormerSmokeless Tobacco: Never Tobacco Cessation:Counseling Given: Not Answered Alcohol UseStandard Drinks/WeekCommentsNot Currently0 (1 standard drink = 0.6 oz pure alcohol)PHQ-2AnswerDate RecordedTotal Ryflh368/20/2023ChildcareAnswerDate HchfawzvXyphddelpVhzoaqm45/12/2019EmploymentAnswerDate RecordedEmploymentUnknown 02/28/2019Hunger ScreeningAnswerDate RecordedWithin the past 12 months we worried whether our food would run out before we got money to buy more.Never True07/08/2023Within the past 12 months the food we bought just didn't last and we didn't have money to get more.Never True07/08/2023urpose - LifeAnswerDate RecordedPurpose and direction in dhecDvdhhcy35/11/2021ex and Gender Information ValueDate RecordedSex Assigned at BirthNot on fileLegal MicBsfo6604/24/2015 11:39 AM EDTGender IdentityNot on fileSexual OrientationNot on file Last Filed Vital Signs Vital SignReadingTime TakenCommentsBlood Uhptywsb333/8507/08/2023 9:31 AM EDT Dbszl448407/08/2023 9:31 AM WOEKzlxjhgxqrz11.1 ??C (98.8 ??F)2021 6:28 PM ESTRespiratory Uhjv345509/23/2021 6:28 PM ESTOxygen Xbcfynqzjd49%2021 8:28 PM ESTInhaled Oxygen Concentration--Kseewh676.6 kg (221 lb 12.8 oz)07/08/2023 9:31 AM ZYGFzjhts935.4 cm (5' 6.3 )07/08/2023 9:31 AM EDTBody Mass Index35.48 07/08/2023 9:31 AM EDT Plan of Treatment Health MaintenanceDue DateLast DoneCommentsTobacco Tshuzgafd98/05/1976DTaP,Tdap and Td Vaccines (1 - Tdap)09/23/19826272Vvebrlriewj93/05/2009Zoster (Shingles) Vaccine (1 of 2)2013dult BMI Bavxddqhj28epression Nglghebgg97Influenza Qlszjui0805/20/2025RSV ( or age 60+ yrs) (1 - 1-dose 75+ series)2038 Medical Devices Not on file Insurance Care Teams Team MemberRelationshipSpecialtyStart DateEnd Atif Beltre MD [address] [facility], [place] [address] PCP - GeneralFamily Medicine05/15/25
--- OUTSIDE RECORDS SUMMARY | 2025-09-10 15:33 | XMS_ITS | Clinical Summary ---
Author Organization [facility] Address [address] [facility] [place] [address] Care Team Providers Care Installation Tech Name Role Phone Colin Nagel MD Primary Care Provider [phone] Allergies No known active allergies Medications MedicationSigDispense QuantityRefillsLast FilledStart DateEnd DateStatus lisinopril 20 MG tablet 1 tablet Once a day , Neyicy604Active Family History RelationNameStatusCommentsFatherAliveMotherDeceased Social History Tobacco UseTypesPacks/DayYears UsedDateSmoking Tobacco: Never Tobacco Cessation:Counseling Given: Not Answered Alcohol UseStandard Drinks/WeekCommentsNever0 (1 standard drink = 0.6 oz pure alcohol)Sex and Gender InformationValueDate RecordedSex Assigned at BirthNot on fileLegal QkyCpul1412/01/2022 7:14 PM EDTGender IdentityNot on fileSexual OrientationNot on file Last Filed Vital Signs Vital SignReadingTime TakenCommentsBlood Oygstfhs611/8705 12:00 PM EDT Pulse--Temperature--Respiratory Rate--Oxygen Saturation--Inhaled Oxygen Concentration--Plhhov329 kg (222 lb)09/10/2024 9:32 AM UUMOjnruc583.7 cm (5' 8 ) 09/10/2024 9:32 AM ESTBody Mass Index33.7509/10/2024 9:32 AM EST Plan of Treatment Not on file Insurance Care Teams Team MemberRelationshipSpecialtyStart DateEnd Date Colin Nagel MD [address] [place] [address], [address] [place] [address] PCP - GeneralFamily Medicine03/19/25
[2025-09-10 16:14] LABS: Alanine Aminotransferase 100 U/L (16-63); Albumin Globulin Ratio 1.1; Albumin Level 3.8 g/dL (3.4-5.0); Alkaline Phosphatase 83 U/L (46-116); Anion Gap 12.0; Aspartate Amino Transferase 39 U/L (15-37); Blood Urea Nitrogen 18.0 mg/dL (7.0-18.0); Calcium 8.7 mg/dL (8.5-10.1); Carbon Dioxide 27.9 mmol/L (21.0-32.0); Chloride 105 mmol/L (98-107); Estimated GFR (African America >60 (>=60 mL/min/1.73m^2); Estimated GFR (Non-African Ame >60 (>=60 mL/min/1.73m^2); Globulin 3.4 g/dL; Glucose 126 mg/dL (74-106); Potassium 3.9 mmol/L (3.5-5.1); Sodium 141 mmol/L (136-145); Total Protein 7.2 g/dL (6.4-8.2)
== END 2025-09-10 15:31 | disposition home or self-care (01) ==
LOC: LAB 15:30
PROVIDERS: PCP Family Medicine; Visit Provider Family Medicine
DX: R79.89 Other specified abnormal findings of blood chemistry (principal)
CPT/HCPCS: 36415; 80053

== ENCOUNTER 2025-09-14 09:56 | Outpatient (OUT) | payer OTHER, SELFPAY ==
--- OUTSIDE RECORDS SUMMARY | 2025-09-10 12:33 | XMS_ITS ---
Author Organization [facility] in [place] Address [address] [place] [address] Care Team Providers Care Sales Professional Name Role Phone Angel Beltre Primary Care Provider REASON FOR VISIT review labs- Encounters Encounter Location Date Provider Diagnosis [facility] [address] [place] [address] 09/10/2025 Angel Beltre Elevated liver function tests R79.89 Assessments Encounter Date Diagnosis (ICD Code) Assessment Notes Treatment Notes Treatment Clinical Notes Section Notes 09/10/2025 Elevated liver function tests (I CD-10 - R79.89) Plan Of Treatment Pending Test Test Name Order Date US abdomen complete 09/10/2025 Progress Notes * Anirudh DAVIDDOB:1965 (59 yo M)Acc No.[id number]:09/10/2025 Patient:?Anirudh DAVID :1965???Age:59 Y???Sex:MalePhone:[phone] Address:[address] [place] [address] Subjective: * Chief Complaints: * R eview labs- * Medical History: * Surgical History: * Hospitalization/Major Diagno stic Procedure: * Medications: Objective: * Vitals: * Physical Examination: ??? Assessment: * Assessment: 1.?Elevated liver function tests - R79.89 (Primary)??? Plan: * Treatment: ?Imaging: US abdomen complete * Procedure Codes: * true * Date:?Generated for Printing/Faxing/eTransmitting on:?09/14/2025 09:59 AM EST
--- OUTSIDE RECORDS SUMMARY | 2025-09-10 23:59 | XMS_ITS | Continuity of Care Document ---
Author Organization [facility] [place] Address [address] [place] [address] Care Team Providers Care Senior Network Architect Name Role Phone Atif Beltre Primary Care Physician Encounter FT_AMBFIN [id number] Date(s): 09/10/25 - 09/10/25 [facility] [address] [facility], [address] [place], [place] [address] Encounter Diagnosis Seborrheic keratoses(Discharge Diagnosis) - 09/10/25 Discharge Disposition: Home (Routine DC) Attending Physician: Jaswinder PARRA MD Referring Physician: Atif Beltre MD Encounter Type: Clinic Allergies, Adverse Reactions, Alerts No Known Allergies Functional Status 09/10/25 Symptomatic After Exposure to ContagionNoSymptomatic After Travel High-Risk Area NoDroplet, Contact Isolation VerificationN/AAirborne,Contact Isolation VerificationN/A Medications lisinopril 20 mg Tab 20 mg = 1 tab(s), Oral, Daily, Refills(s) 0 Start Date: 08/26/25 Status: Ordered Medication Dispense Status: Completed Total Allowed Fills: 1 Fills Dispensed: 0 Multi Vitamins oral tablet 1 tab(s), Oral, Daily, Refill(s) 0 Start Date: 09/10/25 Status: Ordered Medication Dispense Status: Completed Total Allowed Fills: 1 Fills Dispensed: 0 Problem List ConditionConfirmationCourseEffective DatesStatusHealth StatusInformantBilateral hearing ffrmStjxonipk59/16/16ActiveBMI 36.0-36.9,adultConfirmedActiveErectile vbsskovmdveMzqpfdwmq60/6/16ActiveEssential hypertensionConfirmed01/30/19 - 08/26/25ResolvedHypertensionConfirmedActiveObesity due to excess calories ConfirmedActiveSeborrheic keratosesConfirmedActive Procedures ProcedureDateRelated DiagnosisBody SiteStatusLaser assisted in situ keratomileusis (procedure)09/19/09CompletedCholecystectomy (procedure)09/19/85 Completed Vital Signs Most recent to oldest [Reference Range]:1Peripheral Pulse Rate [60-100 bpm]72 bpm (09/10/25 3:07 PM)Respiratory Rate [14-20 br/min]16 br/min (09/10/25 3:07 PM)Blood Pressure [89-139/59-89 mmHg]166/104mmHg *HI* (09/10/25 3:07 PM)Blood Pressure LocationRight arm (09/10/25 3:07 PM) Social History Social History TypeResponseSmoking StatusNever (less than 100 in lifetime);Never entered on: 09/10/25Birth SexMaleSex RepresentationMale (finding) Patient Care team information Care Team Personnel Name: Atif Beltre MD Position: FT Physician Member Role: Primary Care Physician Address: [address] [place] [address] Telecom: Care Team Related Persons Name: REJI DAVID Insurance Providers Guarantor name: Health Plan Information #: 1 Payer: [employer] Payer Identifier: [id number] Member Number: [id number] Group Number: [id number] Subscriber Identifier: [id number] Relationship to Subscriber: self Coverage Type: PRIVATE HEALTH INSURANCE Coverage Verification Date: NA Telecom: [phone] Address: [facility] [address] [place] [address]
--- NOTE | 2025-09-14 09:57 | US_ITS ---
The [address] [address] Patient Name: ROSAMARIA DAVID MRN: [id number] date: 1965 Sex: M Assigned Patient Location: US Current Patient Location: US Accession/Order Number: [id number] Exam Date: 09/14/2025 10:00 Report Date: 09/14/2025 18:23 At the request of: SHAHEEN RUIZ MD Procedure: US abdomen complete COMPLETE ABDOMINAL ULTRASOUND HISTORY: Elevated liver enzymes FINDINGS: LIVER: Hepatic steatosis hepatic cyst measuring up to 2.7 cm adequate flow portal vein GALLBLADDER: Cholecystectomy BILE DUCTS: No ductal dilatation PANCREAS: Unremarkable RIGHT KIDNEY: Length 9.0 cm LEFT KIDNEY: Length 10.5 cm No hydronephrosis identified. No renal calculus seen. No renal mass or cyst identified. No perirenal abnormality seen. No splenic mass or enlargement seen. The upper portions of the IVC and abdominal aorta unremarkable. No free intraperitoneal fluid seen. US/US abdomen complete IMPRESSION: Hepatic steatosis. Anechoic hepatic cysts. No biliary duct dilatation. Cholecystectomy. Impression dictated by: Christopher Ferguson M.D. 09/14/2025 6:23 PM Dictation Location: [place] [address] Electronically authenticated by: [id number] Y Date: 09/14/2025 18:23
--- OUTSIDE RECORDS SUMMARY | 2025-09-14 09:59 | XMS_ITS | Clinical Summary ---
Author Organization [facility] Address [address] [facility], [address] [place] [address] Care Team Providers Care Wheelchair Rental Clerk Name Role Phone Shankar Palacios MD Primary Care Provider + Allergies No known active allergies Medications MedicationSigDispense QuantityRefillsLast FilledStart DateEnd DateStatus b complex vitamins capsule Take 1 capsule by mouth dailyActive Multiple Vitamins-Minerals (THERAPEUTIC MULTIVITAMIN-MINERALS) tablet Take 1 tablet by mouth dailyActive beta carotene 51398 UNITS capsule Take 25,000 Units by mouth [...] Resolved Problems ProblemNoted DateDiagnosed DateResolved DateColon cancer plsratbbl00/19/2016 06/15/2018 Family History Medical HistoryRelationNameCommentsHigh Blood PressureFatherHigh Cholesterol FatherOtherFathergoutCancerMotherRelationNameStatusCommentsBrother 1AliveBrother 2AliveFatherAliveMotherAlive Social History Tobacco UseTypesPacks/DayYears UsedDateSmoking Tobacco: NeverSmokeless Tobacco: NeverAlcohol UseStandard Drinks/WeekCommentsNo0 (1 standard drink = 0.6 oz pure alcohol)Sex and Gender InformationValueDate RecordedSex Assigned at BirthNot on fileLegal WlvAtsq5910/29/2012 11:21 AM ESTGender IdentityNot on fileSexual OrientationNot on file Last Filed Vital Signs Vital SignReadingTime TakenCommentsBlood Uvienqyl191/80111/01/2015 5:38 PM EST Zevdr43493/13/2016 5:38 PM ESTTemperature--Respiratory Qlqk882211/01/2015 5:38 PM ESTOxygen Pfcviqucfa68%04/14/2015 4:09 PM EDTInhaled Oxygen Concentration-- Gpbpmp88.6 kg (202 lb)08/31/2016 5:38 PM VYKJeltye437.9 cm (5' 6.5 )08/31/2016 5:38 PM ESTBody Mass Index32.12111/01/2015 5:38 PM EST Plan of Treatment Not on file Insurance Care Teams Team MemberRelationshipSpecialtyStart DateEnd Shankar Palacios MD [address] [place] [address] [facility]01/24/19
--- OUTSIDE RECORDS SUMMARY | 2025-09-14 09:59 | XMS_ITS | Clinical Summary ---
Author Organization [employer] tem Address [id number] [place] [address] Care Team Providers Care Loom Mechanic Name Role Phone Atif Beltre MD Primary Care Provider [phone] Allergies No known active allergies Medications MedicationSigDispense [...] COUGH, SHORTNESS OF BREATH, OR WHEEZING. USE YPBYSXV9206/18/2023ctive lisinopriL (PRINIVIL,ZESTRIL) 20 mg tablet Indications:Primary hypertensionTake 1 tablet (20 mg total) by mouth in the morning. 30 tablet 5Active Active Problems ProblemNoted DateDiagnosed DateNose septum liqiglhgy07/11/2018Erectile ygkxislohmq75/06/2016 Overview (08/24/2016): Improved with Viagra 50 milligrams in the past Assessment & Plan (08/24/2016 4:11 PM EST): Plan for trial of Cialis 20 milligrams. If this works we can switch him to generic sildenafil whichwill be cheaper for him. I additionally ordered a testosterone level today for him Bilateral hearing loss08/04/2016Bilateral impacted ymsvtmv73/16/2016Hypertension Immunizations ImmunizationAdministration DatesNext DueHepatitis A004/08/2011,09/29/2010 Family History Medical HistoryRelationNameCommentsArthritisFatherHyperlipidemiaFather HypertensionFatherHeart attackMotherOtherMotherpancreatic surgery (tumor) RelationNameStatusCommentsFatherAliveMotherDeceased Social History Tobacco UseTypesPacks/DayYears UsedDateSmoking Tobacco: FormerSmokeless Tobacco: Never Tobacco Cessation:Counseling Given: Not Answered Alcohol UseStandard Drinks/WeekCommentsNot Currently0 (1 standard drink = 0.6 oz pure alcohol)PHQ-2AnswerDate RecordedTotal Oblgc916/20/2023ChildcareAnswerDate GbqkfhxhGaufughdqKwdlnsh08/12/2019EmploymentAnswerDate RecordedEmploymentUnknown 02/28/2019Hunger ScreeningAnswerDate RecordedWithin the past 12 months we worried whether our food would run out before we got money to buy more.Never True07/08/2023Within the past 12 months the food we bought just didn't last and we didn't have money to get more.Never True07/08/2023urpose - LifeAnswerDate RecordedPurpose and direction in jsbzCibipzq46/11/2021ex and Gender Information ValueDate RecordedSex Assigned at BirthNot on fileLegal ChiAhwi2004/24/2015 11:39 AM EDTGender IdentityNot on fileSexual OrientationNot on file Last Filed Vital Signs Vital SignReadingTime TakenCommentsBlood Rhksxeld091/8507/08/2023 9:31 AM EDT Myown102307/08/2023 9:31 AM AMEFkwfjhkclxn47.1 ??C (98.8 ??F)2021 6:28 PM ESTRespiratory Fpte170709/23/2021 6:28 PM ESTOxygen Qyqvtchehj81%2021 8:28 PM ESTInhaled Oxygen Concentration--Tmlbyh366.6 kg (221 lb 12.8 oz)07/08/2023 9:31 AM VPSVdatlj968.4 cm (5' 6.3 )07/08/2023 9:31 AM EDTBody Mass Index35.48 07/08/2023 9:31 AM EDT Plan of Treatment Health MaintenanceDue DateLast DoneCommentsTobacco Jthuarcbt94/05/1976DTaP,Tdap and Td Vaccines (1 - Tdap)09/23/19823330Rhnnqeycdsv35/05/2009Zoster (Shingles) Vaccine (1 of 2)2013dult BMI Fpljlyfor76epression Epidfpcib86Influenza Uauveaw4705/20/2025RSV ( or age 60+ yrs) (1 - 1-dose 75+ series)2038 Medical Devices Not on file Insurance Care Teams Team MemberRelationshipSpecialtyStart DateEnd Atif Beltre MD [address] [facility], [place] [address] PCP - GeneralFamily Medicine05/15/25
--- OUTSIDE RECORDS SUMMARY | 2025-09-14 09:59 | XMS_ITS | Clinical Summary ---
Author Organization [facility] Address [address] [facility] [place] [address] Care Team Providers Care Police Superintendent Name Role Phone Colin Nagel MD Primary Care Provider [phone] Allergies No known active allergies Medications MedicationSigDispense QuantityRefillsLast FilledStart DateEnd DateStatus lisinopril 20 MG tablet 1 tablet Once a day , Mliowh534Active Family History RelationNameStatusCommentsFatherAliveMotherDeceased Social History Tobacco UseTypesPacks/DayYears UsedDateSmoking Tobacco: Never Tobacco Cessation:Counseling Given: Not Answered Alcohol UseStandard Drinks/WeekCommentsNever0 (1 standard drink = 0.6 oz pure alcohol)Sex and Gender InformationValueDate RecordedSex Assigned at BirthNot on fileLegal SjgCtfo0212/01/2022 7:14 PM EDTGender IdentityNot on fileSexual OrientationNot on file Last Filed Vital Signs Vital SignReadingTime TakenCommentsBlood Zveiwkyc064/8705 12:00 PM EDT Pulse--Temperature--Respiratory Rate--Oxygen Saturation--Inhaled Oxygen Concentration--Toabzz837 kg (222 lb)09/10/2024 9:32 AM WRBKvozjd796.7 cm (5' 8 ) 09/10/2024 9:32 AM ESTBody Mass Index33.7509/10/2024 9:32 AM EST Plan of Treatment Not on file Insurance Care Teams Team MemberRelationshipSpecialtyStart DateEnd Date Colin Nagel MD [address] [place] [address], [address] [place] [address] PCP - GeneralFamily Medicine03/19/25
--- OUTSIDE RECORDS SUMMARY | 2025-09-14 09:59 | XMS_ITS | Patient Health Record ---
Author Organization [facility] in [place] Address [address] [place] [address] Care Team Providers Care Benefits Processor Name Role Phone Angel Beltre Primary Care Provider [phone] Allergies No Known Allergies Results Component Value Reference Range Notes GLYCOHEMOGLOBIN A1C Reviewed date:08/27/2025 04:20:01 PM Interpretation: Performing Lab: Notes/Report: [facility] , Glycohemoglobin A1C 5.9 4.5-6.2 % ADA THERAPEUTIC TARGET < 7.0 > 7.0 ACTION SUGGESTED ADA RECOMMENDED LIMIT 4.0 - 6.0 Estimated Average Glucose 123 Performing Lab:see noteML - [facility] LBCBC AND AUTO DIFF * Reviewed date:05/16/2025 12:43:50 PM Interpretation: Performing Lab: Notes/Report:WBC7.64-11 x10E9/LRBC COUNT5.034.1-5.7 X10E12/QNUVDKCPETS82.613-17 g/rNVUASMTNNBG20.639-50 %MBC5588-999 fLMCH29.027-34 ncGQXM02.532-36 g/dLRDW13.7 11.5-15 %PLATELET MUDAM513138-541 X10E9/LMPV9.27-12 fLNEUTROPHILS RELATIVE PERCENT BY AUTOMATED COUNT54.6LYMPHOCYTES [...] COUNT0.10.0-0.2 10*3/uLCELLAVISION DIFFERENTIAL TYPEAUTOMATED DIFFERENTIAL PERFORMED AT [address], [place] [address] COMPREHENSIVE METABOLIC PANEL Reviewed date:05/16/2025 12:43:50 PM Interpretation: Performing Lab: Notes/Report:LWVULW592534-041 mmol/LPOTASSIUM4.13.5-5.0 mmol/EONUSGXGW73754-460 mmol/LCARBON HRSKVYF8335-64 mmol/LANION KST70-02 mmol/LBLOOD UREA PEUBPVDD805-34 mg/dLCREATININE0.890.60-1.30 mg/dLMETHOD TRACEABLE TO IDMS AJIRIEAVJCWEZVJ2232- 99 mg/uFFRZHLUL90.58.5-10.5 mg/dLTOTAL PROTEIN7.06.0-8.0 g/dLALBUMIN4.63.2-5.3 g/dLALKALINE MWZDCLUHXTE4404-434 U/LAST38<=41 U/LALT92<=40 U/LBILIRUBIN,TOTAL0.9 0.3-1.2 mg/dLEGFR (CKD-EPI) NON-RACE DEPENDENT>90>=60 ml/min/1.73sq.m CKD-EPI 2020 equation that does not use a race coefficient. PERFORMED AT [address] [id number] Reported eGFR is based on the EGFR not calculated due to patient's gender not being defined. FREE T3 Reviewed date:05/16/2025 12:43:50 PM Interpretation: Performing Lab: Notes/Report:FREE T33.832.50-3.90 pg/mL PERFORMED AT [address] [address] URIC ACID Reviewed date:05/16/2025 12:43:50 PM Interpretation: Performing Lab: Notes/Report:URIC ACID6.42.6-7.2 mg/dL PERFORMED AT [address] [address] INSULIN Reviewed date:05/16/2025 12:43:50 PM Interpretation: Performing Lab: Notes/Report:FLZKDSC31.121.00-23.00 uIU/mL Ref. range is for FASTING NON-DIABETIC POPULATION. PERFORMED AT [address] [address] HGB A1C (GLYCO-HGB) Reviewed date:05/16/2025 12:43:50 PM Interpretation: Performing Lab: Notes/Report:HEMOGLOBIN A1C6.54.4-5.6 % Diabetes : > 6.4 % affected. Prediabetes : 5.7 % to 6.4 % Use with caution in patients with abnormal hemoglobin variants as Result HgbA1c ADA Guidelines the half-life of red blood cells and in vivo glycation rates are Normal : less than 5.7 % EST. AVERAGE BFJKAYU239AFKVEJLFH AT [address] [address]WEIUBNJ PROFILE Reviewed date:05/16/2025 12:43:50 PM Interpretation: Performing Lab: Notes/Report:FREE T40.710.61-1.60 ng/dLTSH1.420.49-4.67 uIU/mL PERFORMED AT [address] [address] LIPID PANEL Reviewed date:05/16/2025 12:43:50 PM Interpretation: Performing Lab: Notes/Report:KZASUMKAPMM970165-275 mg/iIKRKVKVNYDKUK84303-633 mg/dLHDL URSLMRKFWDH58>39 mg/dL HDL > or = 40mg/dL- Desirable HDL <40 mg/dL - High Risk HDL >60 mg/dL - Negative Risk LDL (CALC)120<130 mg/dL LDL >160 mg/dL - High Risk LDL <100 mg/dL - Desirable CHOLESTEROL:HDL4.61.0-5.0 NAVERY LOW CMFEQGWYCDT159-44 mg/dLPERFORMED AT [address] [place] [address]HR[address]. SCREENING Reviewed date:05/16/2025 12:43:51 PM Interpretation: Performing Lab: Notes/Report:PROSTATIC SPEC ANT1.810.00-4.00 ng/mL cannot be used interchangeably. PERFORMED AT [address] [address] Khris DXI chemiluminescent immunoassay. The method used for this test is Toney Values obtained by different assay methods FECAL OCCULT BLOOD Reviewed date:05/29/2025 12:35:32 PM Interpretation: Performing Lab: Notes/Report:FECAL OCCULT BLOODNegativeNegativePERFORMED AT [address] [address]LLSR 14(COMP METB) Reviewed date:08/27/2025 04:20:01 PM Interpretation: Performing Lab: Notes/Report: [facility] ,Fveryl979325-755 mmol/LPotassium4.03.5-5.1 mmol/HAbgaldyh21646-222 mmol/LCarbon Vvigavl36.021.0-32.0 mmol/LAnion Gap15.2Fiykakg27180-971 mg/dLBlood Urea Nluynmrs90.07.0-18.0 mg/dLCreatinine0.950.70-1.30 mg/dLEstimated GFR ( Jazzy>60>=60 mL/min/1.73m 2Estimated GFR (Non- Brittany>60>=60 mL/min/1.73m 2BUN Creatinine Ratio12.4Yzpwdzo6.08.5-10.1 mg/dLBilirubin Total0.50.2-1.0 mg/dL Aspartate Amino Yxgmanpojcj6569-98 U/LAlanine Xjwnmagxbxwipmja37508-59 U/L Alkaline Mkwogtfylgy9177-761 U/LTotal Protein7.56.4-8.2 g/dLAlbumin Level3.93.4- 5.0 g/dLGlobulin3.6Albumin Globulin Ratio1.1Performing Lab:see noteML - [facility] LBPROF 14(COMP METB) Reviewed date:09/10/2025 05:34:21 PM Interpretation: Performing Lab: Notes/Report: [facility] ,Prmyhy252245-168 mmol/LPotassium3.93.5-5.1 mmol/VIqpzdzao37378-232 mmol/LCarbon Gxhrvqk35.921.0-32.0 mmol/LAnion Gap12.5Ksmrwbe03160-264 mg/dLBlood Urea Dwmatlrn08.07.0-18.0 mg/dLCreatinine1.140.70-1.30 mg/dLEstimated GFR ( Jazzy>60>=60 mL/min/1.73m 2Estimated GFR (Non- Brittany>60>=60 mL/min/1.73m 2BUN Creatinine Ratio15.6Rvbbqqr2.78.5-10.1 mg/dLBilirubin Total0.40.2-1.0 mg/dL Aspartate Amino Tmspmcmodvx8254-43 U/LAlanine Wljdsycycjsbhjdc04697-76 U/L Alkaline Gchmoxayyjm3771-327 U/LTotal Protein7.26.4-8.2 g/dLAlbumin Level3.83.4- 5.0 g/dLGlobulin3.4Albumin Globulin Ratio1.1Performing Lab:see noteML - [facility] LB Reason For Referral Reason Basal cell? Diagnosis 1 Nevus (D22.9) Referral Organization [facility] Referring Provider First Name Angel Referring Provider Last Name Peteliam Referring Provider Speciality [facility] Referred Provider Jaswinder Morelos Referred Provider [...] alcohol in the p ast year? No Jjmlga6SgivctclaxmpkmMkxprqbu Problems Problem Type SNOMED Code ICD Code Onset Dates Problem Status W/U Status Risk Notes Problem Hypertension (18239120) Hypertension (I10 ) ActiveconfirmedProblemWell adult (928287440)Well adult (Z00.00)Activeconfirmed ProblemNevus (6627197414)Nevus (D22.9)Activeconfirmed Vital Signs Blood pressure diastolic 90 mm Hg 04/15/2025 Gzwzzu44 in04/15/2025lood pressure yafbhgsd495 mm Hg04/15/20259425Czknrh903.8 lbs 04/15/2025BMI35.85 kg/m204/15/2025 Encounters Encounter Location Date Provider Diagnosis [address] [address] 04/15/2025 Angel Beltre Well adult Z00.00 ; Hypertension I10 and Nevus D22.[address] [address] 05/16/2025 Angel Beltre Elevated glucose lev el R73.[address] [address] 05/29/2025 Angel Freemany [address] [address] 08/20/2025Doug HoyHypertension I10 and Elevated glucose level R73.[address] [address]/05/2025 Angel HoyElevated liver function tests R79.[address] [id number]/Doug HoyElevated liver function tests R79.89 Assessments Encounter Date Diagnosis (ICD Code) Assessment Notes Treatment Notes Treatment Clinical Notes Section Notes 04/15/2025 Well adult (ICD-10 - Z00.00) 04/15/2025Hypertension (ICD-10 - I10)05/16/2025Elevated glucose level (ICD-10 - R73.09)08/20/2025Hypertension (ICD-10 - I10)08/27/2025Elevated liver function tests (ICD-10 - R79.89)09/10/2025Elevated liver function tests (ICD-10 - R79.89) 08/20/2025Elevated glucose level (ICD-10 - R73.09)04/15/2025Nevus (ICD-10 - D22.9) Plan Of Treatment Pending Test Test Name Order Date HEMOGLOBIN A1C (GLYCO) 04/15/2025 INSULIN, TOTAL 04/15/2025 LIPID PANEL (CHOL/TRIG/HDL/LDL) 04/15/20 URIC ACID 04/15/2025 CMP - Comprehensive Metabolic Panel 10/2024 STOOL OCCULT BLOOD 04/15/2025 GLYCOHEMOGLOBIN A1C 05/16/2025 PROF 14(COMP METB) 08/27/2025 THYROID PANEL (T4/TSH/FREE T3) PSA, SCREENING 04/15/2025 US abdomen complete 09/10/2025 CMP (COMP MET MEZA) w/eGFR CKD-EPI 2024 CBC WITH DIFF 04/15/2025 Insurance Providers Payer Name Payer Address Payer Phone Subscriber Number Group Number Insured Name Patient Relationship to Insured Coverage Start Date Coverage End Date [employer] [employer] [address] [place] [phone] [id number] Royl Davdi - patient is the insured Medical (General) History Medical History History ICD Code hypertension Surgical History Surgery Date(Month/Year) gallbladder removed 1985 lasik eye surgery 2009
== END 2025-09-14 09:57 | disposition home or self-care (01) ==
LOC: US 09:56
PROVIDERS: PCP Family Medicine; Visit Provider Family Medicine
DX: R79.89 Other specified abnormal findings of blood chemistry (principal); K76.0 Fatty (change of) liver, not elsewhere classified
CPT/HCPCS: 76700